=== PATIENT | female | born 1960 | race Two or more races ===

== ENCOUNTER 2019-11-19 06:09 | Day surgery (SDC) | payer OTHER ==
[2019-11-19] MEDS ORDERED: NEXIUM 24HR20 MG PO (09:38)
== END 2019-11-19 11:10 | disposition home or self-care (01) ==
LOC: AMB-ENDOS 06:09 → ADM 14:45
PROVIDERS: ATTEND Surgery
DX: K29.60 Other gastritis without bleeding (principal); K44.9 Diaphragmatic hernia without obstruction or gangrene